=== PATIENT | male | born 1960 | race Caucasian/White ===

== ENCOUNTER → 2016-12-06 | Day surgery (SDC) | payer OTHER ==
[~2016-12-06] MED LIST: LIDOCAINE 1% 300 MG/30 ML SDV ONE; MIDAZOLAM 2 MG/2 ML VIAL ONE; ONDANSETRON 4 MG/2 ML VIAL IVP PRN; ONDANSETRON 4 MG/2 ML VIAL ONE; fentaNYL 100 MCG/2 ML INJ ONE
== END | disposition home or self-care (01) ==
LOC: FIMAGING 07:27
PROVIDERS: ATTEND Internal Medicine
PROC: 0WPG33Z Removal of Infusion Device from Peritoneal Cavity, Percutaneous Approach (ICD-10-PCS; principal; 2016-12-06 10:25)
DX: K76.9 Liver disease, unspecified (principal)
CPT/HCPCS: J2250; J2405; J3010

== ENCOUNTER → 2016-12-28 | Outpatient (CLI) | payer OTHER | LOC: CIMAGING 07:48 | PROVIDERS: ATTEND Internal Medicine | DX: K74.60 Unspecified cirrhosis of liver (principal); K76.9 Liver disease, unspecified | CPT/HCPCS: 76705-PO ==